=== PATIENT | female | born 1975 | race Caucasian/White ===

== ENCOUNTER 2019-10-02 14:18 | Inpatient (IN) | payer OTHER ==
[~2019-10-02] VITALS: Ht 167.6 cm; Wt 59.9 kg
[2019-10-02 14:20] VITALS: BP 150/88
[2019-10-02 14:45] LABS: URINE BLOOD 2+ (Negative); URINE CLARITY CLEAR; URINE COLOR YELLOW; URINE GLUCOSE-RANDOM* NEGATIVE (Negative); URINE KETONES 3+ (Negative); URINE LEUKOCYTES-REFLEX NEGATIVE (Negative); URINE NITRITE-REFLEX NEGATIVE (Negative); URINE PROTEIN (DIPSTICK) 2+ (Negative); URINE SPECIFIC GRAVITY >= 1.030 (1.005-1.035); URINE UROBILINOGEN 0.2 E.U./dl (0.2-1.0)
[2019-10-02 14:50] LABS: ICTOTEST (BILI CONFIRMATORY) Negative (Negative); URINE BILIRUBIN NEGATIVE (Negative); URINE REDUCING SUBSTANCE NEGATIVE
[2019-10-02 15:22] LABS: CASTS None Seen /LPF (None Seen); CRYSTALS None Seen /LPF (None Seen); SQUAMOUS 4-10 Moderate /LPF (0-3)
[2019-10-02 15:23] LABS: BACTERIA-REFLEX 1-9 Few /HPF (None Seen); URINE RBC 3-10 Few /HPF (0-2); URINE WBC-REFLEX None Seen /HPF (0-5)
[2019-10-02 15:50] LABS: ABSOLUTE NEUTROPHILS 15.4 thou/uL (1.4-8.2); BASOPHILS 0.3 % (0.0-2.0); HEMATOCRIT 47.3 % (37.0-47.0); LYMPHOCYTES 4.3 % (24.0-44.0); MCH 32.2 pg (26.0-34.0); MCHC 33.8 g/dL (28.0-37.0); MCV 95.1 fL (80.0-100.0); MONOCYTES 7.2 % (1.0-8.0); PLATELET COUNT 351 thou/uL (150-400); POLYS 88.2 % (36.0-66.0); RBC 4.97 mil/uL (4.20-5.00); WBC 17.4 thou/uL (4.0-11.0)
[2019-10-02 15:58] LABS: ANION GAP 17 mmol/L (7-16); BUN 12 mg/dL (7-18); CALCIUM 10.4 mg/dL (8.5-10.1); CHLORIDE 99 mmol/L (98-107); CO2 21 mmol/L (21-32); CREATININE 0.8 mg/dL (0.6-1.0); GLUCOSE 118 mg/dL (74-106); POTASSIUM 3.8 mmol/L (3.5-5.1); SODIUM 137 mmol/L (136-145)
[2019-10-02 16:06] LABS: APTT 27.5 Seconds (24.5-32.8); PROTIME 10.9 Seconds (9.3-11.4)
[2019-10-02 16:09] LABS: ALBUMIN 4.8 g/dL (3.4-5.0); LIPASE 40 U/L (73-393); SGOT 10 U/L (15-37); SGPT 12 U/L (30-65); TOTAL BILIRUBIN 1.4 mg/dL (<0.1-1.0); TOTAL PROTEIN 8.6 g/dL (6.4-8.2); TROPONIN-I <0.06 ng/mL (<0.06)
[2019-10-02 17:12] LABS: CHOLESTEROL 210 mg/dL (<200); HDL CHOLESTEROL 89 mg/dL (>40); LDL CHOLESTEROL 106 mg/dL (<100); TC:HDL 2.4 Ratio (Not establshd); TRIGLYCERIDE 75 mg/dL (<150); VLDL 15 mg/dL (<40)
[2019-10-02 17:13] LABS: SERUM ASSESSMENT Clear
[2019-10-02 17:49] LABS: FOLIC ACID 16.5 ng/mL (8.6-58.9); TSH 1.234 uIU/mL (0.358-3.740)
[2019-10-02 17:53] VITALS: BP 131/76
[2019-10-02 18:11] VITALS: BP 131/76
[2019-10-02 18:19] VITALS: BP 144/77
[2019-10-02 18:40] VITALS: BP 109/59
[2019-10-02] MEDS ORDERED: PROAIR HFA8.5 GM INH (19:10)
--- NOTE | 2019-10-02 19:29 | EKG ---
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
[2019-10-02 19:34] VITALS: BP 141/78
--- NOTE | 2019-10-02 22:32 | NUR ---
PATIENT WAS A NEW ADMISSION TO THE UNIT SHORTLY BEFORE SHIFT CHANGE. FULLY ALERT AND ORIENTED, PATIENT IS ABLE TO PARTICIPATE IN ADMISSION AND CALL APPROPRIATELY FOR NEEDS. PATIENT IS ABLE TO FREELY AMBULATE THE ROOM AND APPEARS STRONG AND BALANCED WHEN WALKING. CHIEF COMPLAINT NAUSEA, NURSE HAS TREATED PATIENT EFFECTIVELY USING MEDICATIONS AND NON PHARMACOLOGICAL INTERVENTION. NURSE TO COMPLETE ADMISSION PROCESS AND INITIATE PLAN OF CARE.
[2019-10-02 23:45] LABS: AMP/METHAMP Negative (Negative); BARBITURATES Negative (Negative); BENZODIAZEPINES Negative (Negative); COCAINE Negative (Negative); METHADONE Negative (Negative); OPIATES Negative (Negative); PCP Negative (Negative)
[2019-10-03] VITALS: BP 107/59
[2019-10-03 03:35] VITALS: BP 132/83
[2019-10-03 05:05] LABS: MCH 32.8 pg (26.0-34.0); MCV 96.5 fL (80.0-100.0); RBC 3.73 mil/uL (4.20-5.00); RDW 13.2 % (10.5-14.5); WBC 9.6 thou/uL (4.0-11.0)
[2019-10-03 05:11] LABS: HEMOGLOBIN 12.2 gm/dL (12.0-15.0)
[2019-10-03 07:50] VITALS: BP 138/83
--- NOTE | 2019-10-03 10:44 | NUR ---
INITIAL ASSESSMENT: Received consult. KENNETH reviewed chart and spoke with nursing and attending physician. Pt was admitted from home due to hematemesis. GI consulted. Pt to have an EGD today. KENNETH met with pt at bedside. Introduced role of SW. Pt is alert/orientated x 4. Pt reports she lives at home with her s/o. Prior to admission, pt was independent with ADLs. No use of DME. No hx of services or post-acute placement. Pt does not have a PCP. Pt does not have health insurance. Referral to be sent to [employer] to assist pt with Medicaid application and/or [facility] financial assistance. SW to provide pt with Health Resource Guide and prescription discount card. Pt states she is wanting to find a PCP. Plan is for pt to discharge home when medically stable. KENNETH is following to assist as needed with discharge planning.
[2019-10-03 16:17] VITALS: BP 149/89
--- NOTE | 2019-10-03 16:56 | NUR ---
PT ALERT AND ORIENTED TIMES FOUR. VSS, SR ON TELE, IVF INFUSING PER ORDER. PT DENIES PAIN/SOA/N/V. PT UP AB NICK WITH STEADY GAIT. EGD DONE TODAY. PT TOLERATING SOFT DINNER. PT FAMILY AT BEDSIDE. PT SLOWLY PROGRESSING TOWRADS POC GOALS.
[2019-10-03 19:19] VITALS: BP 124/71
--- NOTE | 2019-10-03 21:26 | P ---
[facility] [place] [address] PROCEDURE REPORT Name: CHRISTINA LAZCANO Room #: 364-P [facility] IN M.R.#: [id number] Admission: 10/02/19 Attend Phys: Marcos Shanks Discharge: Date of : 77 Report #: [id number] THIS REPORT FOR: //name// CC: ES[facility] physician/PCP Marcos Shanks DATE OF SERVICE: 10/03/2019 PROCEDURE: EGD with biopsies. PATIENT OF: Dr. Shanks. INDICATION FOR PROCEDURE: This patient has had nausea and vomiting for the last 4 days of uncertain etiology. Her nausea continues, but she has now stopped vomiting. She also apparently has history of gastroesophageal reflux and some dysphagia and had reported coffee-ground emesis. Informed consent for this procedure was obtained after the risks of the procedure were explained to the patient. The risks include but are not limited to the following: bleeding, perforation, infection, complications of sedation and the possibility I could miss something. The patient is indicated her consent to proceed by signing. Propofol was slowly titrated before and during this procedure for patient comfort by the anesthesia service. Anesthesia kindly provided deep sedation for this procedure. With the patient in the left lateral decubitus position, the Olympus upper videoscope was introduced through the upper esophageal sphincter and advanced under direct visualization to the third portion of the duodenum. Findings are noted on withdrawal of the scope. The duodenal mucosa appears normal throughout its entirety. Pylorus, normal mucosa. Antrum, erythematous mucosa. Biopsies were obtained x 2 from the antrum for Helicobacter pylori evaluation and other entities that might cause a mild gastritis. Body, normal mucosa. Cardia and fundus, normal mucosa. Retroflex view did not reveal any further abnormalities. The scope was withdrawn into the esophagus. The Z-line is appropriately located at the top of the gastric folds. There are esophageal ulcerations extending from the Z-line up into almost the proximal esophagus. There is no bleeding seen in this area, in the very proximal esophagus at 20 cm from the incisors, there is an esophageal stricture. 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 She will need to have this dilated at a later point. [address] [address] PROCEDURE REPORT Name: CHRISTINA LAZCANO Room #: 364-P [facility] IN .R.#: [id number] Admission: 10/02/19 Attend Phys: Marcos Shanks Discharge: Date of : 77 Report #: [id number] The scope was withdrawn. The patient went to the recovery area in stable condition. She tolerated the procedure well. IMPRESSION: 1. Severely ulcerated mid and distal esophagus. 2. Tight esophageal stricture at 20 cm. Mucosa at this level looks intact. 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 3. Mild antral erythema, biopsied. 4. Normal duodenum. RECOMMENDATIONS: My recommendations are to await the biopsy results. We will continue the proton pump inhibitors, but increase up to IV push b.i.d. We will start her on a soft diet. I would like for her to have a gastric emptying study as well as she vomited undigested foods 12 hours after ingesting them on Tuesday and she says she has vomited undigested foods at multiple points in the past. This suggests possible gastroparesis. She will need a followup EGD in approximately 12 weeks for evaluation of ulcerated esophagitis healing and for dilatation of a tight proximal esophageal stricture that I think may be secondary to cricopharyngeal achalasia. Thank you very much once again for allowing me to participate in her care, Dr. Shanks. <ELECTRONICALLY SIGNED> By: Kiarra Wheeler DO 10/03/19 2126 1529 16 Kiarra Wheeler DO /nt
--- NOTE | 2019-10-04 04:01 | NUR ---
Able to tolerate soft foods and liquids without being nauseous though she stated it hurts when she eats. No nausea or vomiting. Denies being in pain at rest. Pt. instructed to keep NPO status since MN for gastric emptying study. Up ad rupali in room with steady gait. Making progress towards care plan goals.
[2019-10-04 04:15] VITALS: BP 122/67
[2019-10-04 07:25] VITALS: BP 109/68
[2019-10-04 10:58] LABS: HEMATOCRIT 38.7 % (37.0-47.0); HEMOGLOBIN 13.1 gm/dL (12.0-15.0); MCH 32.5 pg (26.0-34.0); MCHC 33.9 g/dL (28.0-37.0); MCV 95.7 fL (80.0-100.0); RBC 4.04 mil/uL (4.20-5.00); RDW 12.6 % (10.5-14.5); WBC 9.6 thou/uL (4.0-11.0)
[2019-10-04 11:12] LABS: CALCIUM 8.6 mg/dL (8.5-10.1); CREATININE 0.6 mg/dL (0.6-1.0); MAGNESIUM 1.6 mg/dL (1.8-2.4)
[2019-10-04 11:17] LABS: POTASSIUM 2.8 mmol/L (3.5-5.1)
--- NOTE | 2019-10-04 13:13 | NUR ---
KENNETH reviewed chart and spoke with nursing and attending physciian. Pt is not ready for discharge today. Pt's potassium is low. Pt's diet to be slowly advanced. Discharge anticipated for tomorrow. KENNETH met with pt at bedside. KENNETH provided pt with Health Resource Guide and prescription discount card. [employer] screened pt and pt will not qualify for Medicaid, as she is no 12+ months disabled. Pt will discharge home when medically stable. KENNETH is following to assist as needed with discharge planning.
--- NOTE | 2019-10-04 15:35 | NUR ---
ASSUMED CARE OF PT AT APPROX 0700. PT IS ALERT AND ORIENTED X4, MONITORED ON TELE AND ABLE TO MAINTAIN 02 SAT >90 ON RA. DENIES PAIN AND SOA. EVEN NON LABORED BREATHING. ASSESSMENT CHARTED. REPLACING K+ AND MAG ORDERED. NAD NOTED. PT DENIES FURTHER CONCERNS OR QUESTIONS. WILL CONTINUE TO MONITOR.
[2019-10-04 16:25] VITALS: BP 131/84
[2019-10-04 20:00] VITALS: BP 142/75
--- NOTE | 2019-10-05 02:33 | NUR ---
WATCHING TV WITH SIG OTHER MOST OF SHIFT. UP AD NICK IN ROOM. REMAINS WITH NAUSEA AT TIMES. PROGRESSING SLOWLY TOWARDS DISCHARGE GOALS. MAINTAIN SAFE ENVIRONMENT. CONTINUE TO ASSES.
[2019-10-05 04:10] VITALS: BP 126/79
[2019-10-05 05:35] LABS: HEMATOCRIT 36.8 % (37.0-47.0); HEMOGLOBIN 12.6 gm/dL (12.0-15.0); MCH 32.6 pg (26.0-34.0); MCHC 34.3 g/dL (28.0-37.0); RBC 3.87 mil/uL (4.20-5.00); RDW 12.5 % (10.5-14.5); WBC 6.6 thou/uL (4.0-11.0)
[2019-10-05 05:51] LABS: CALCIUM 8.1 mg/dL (8.5-10.1); CREATININE 0.5 mg/dL (0.6-1.0); MAGNESIUM 1.9 mg/dL (1.8-2.4)
[2019-10-05 06:05] LABS: POTASSIUM 2.7 mmol/L (3.5-5.1)
[2019-10-05 07:38] VITALS: BP 139/87
--- NOTE | 2019-10-05 13:59 | NUR ---
KENNETH reviewed chart and spoke with nursing and attending physician. Pt may discharge home later today. Potassium to be rechecked at 1500. KENNETH met with pt at bedside to discuss discharge plan. Pt states she may be able to afford medications, but unsure until she knows the costs. KENNETH discussed with Director of Case Mgmt, who states that Case Mgmt can vouch for meds. KENNETH faxed face sheet to [facility]. Nursing to take scripts to pharmacy today if pt discharges. Pt will bring scripts back on Tuesday to have filled if she discharges home over the weekend. Pt has [facility] Health Resource Guide and prescripton assistance card. SW is following to assist as needed with discharge planning.
[2019-10-05 15:43] VITALS: BP 150/89
--- NOTE | 2019-10-05 18:23 | NUR ---
ASSUMED CARE OF PT AT 0700. CRITICAL K+ THIS AM - REPLACED X5 BAGS OF K+. LAB RESULTS PENDING. WILL CONT TO MONITOR.
[2019-10-05 18:34] LABS: CREATININE 0.6 mg/dL (0.6-1.0); MAGNESIUM 1.6 mg/dL (1.8-2.4); POTASSIUM 3.4 mmol/L (3.5-5.1)
[2019-10-05 20:15] VITALS: BP 135/72
--- NOTE | 2019-10-05 22:06 | PATH ---
[facility] [address] [place] [address] PATHOLOGY RPT PROCEDURE Name: JEANNE CARLSON Room #: 364-P ADM IN M.R.#: [id number] Admission: 10/02/19 Date of : 77 Discharge: Report #: [id number] Path Case #: [id number] [facility] Accession Number: [id number] . 01 Material submitted: . stomach - GASTRIC BIOPSY R/O H. PYLORI . 01 Clinical history: . Hematemesis, nausea/vomiting, diarrhea, R/O H. pylori . 02 Diagnosis: "Gastric BX R/O H. pylori", biopsy: - Gastric mucosa with mild reactive changes and mild chronic inflammation. - No organisms present on H. pylori immunohistochemical stain (block A1); control reacted appropriately. (RICKY:kanchan; 10/05/2019) MBR 10/05/2019 1403 Local . 02 Electronically signed: . Khadijah Hernadez MD, Pathologist NPI- [id number] . 01 Gross description: . The specimen is received in formalin, labeled "Jeanne Carlson, gastric biopsy, R/O H. pylori". Received are two segments of pale morales soft tissue measuring 0.5 cm each in maximum dimensions. The specimen is submitted entirely in cassette A1. (CAA; 10/04/2019) QA/[facility] 10/04/2019 1051 Local . 02 Pathologist provided ICD-10: K29.50 . 02 CPT . 221703, Q48077 Specimen Comment: A courtesy copy of this report has been sent to [phone], [phone] Specimen Comment: [id number] Specimen Comment: Report sent to / DR SALAS Performed at: [address], [place] [id number] MD Jabier Chopra MD Phone: [phone] Performed at: [address] [id number] MD Lana Burr MD Phone: [phone]
--- NOTE | 2019-10-06 02:39 | NUR ---
Patient has made progress towards her discharge. She is resting comfortably. Nursing will continue to monitor.
[2019-10-06 04:13] LABS: CREATININE 0.5 mg/dL (0.6-1.0); MAGNESIUM 1.9 mg/dL (1.8-2.4)
[2019-10-06 04:23] LABS: POTASSIUM 2.9 mmol/L (3.5-5.1)
[2019-10-06 04:40] VITALS: BP 102/74
--- NOTE | 2019-10-06 06:25 | NUR ---
Iv K+ replacement ordered. Pt refused due to experience yesterday receiving K+ IV- she reported it burned her arm all day. She reported she wanted to eat and that she was hungry- she wanted to replace K+ via diet. Provider notified and full liquid diet ordered plus Gatorade.
[2019-10-06 07:23] VITALS: BP 136/97
[2019-10-06] MEDS ORDERED: CARAFATE 11 GM/10 M1 PO (15:50)
[2019-10-06] MEDS ORDERED: PROTONIX40 M2 PO (15:50)
[2019-10-06 16:00] VITALS: BP 136/97
[2019-10-06 16:05] VITALS: BP 136/97
--- NOTE | 2019-10-06 16:12 | NUR ---
PT DISCHARGE INSTRUCTIONS REVIEWED WITH PT. RXS SENT ELECTRONICALLY. ALL BELONGINGS SENT WITH PT. DISCHARGE INSTRUCTIONS AND EDUCATION MATERIALS SENT WITH PT.
== END 2019-10-06 16:18 | disposition home or self-care (01) | DRG 391 ==
LOC: ER 14:18 → 3W 17:04 → EROBS 17:04 → 3W 18:21
PROVIDERS: Emergency Medicine; Internal Medicine; ADMIT Hospitalist
PROC: 0DB68ZX Excision of Stomach, Via Natural or Artificial Opening Endoscopic, Diagnostic (ICD-10-PCS; principal; 2019-10-03)
DX: K22.2 Esophageal obstruction (principal); K22.11 Ulcer of esophagus with bleeding; K92.0 Hematemesis; J45.909 Unspecified asthma, uncomplicated; E86.0 Dehydration; E80.6 Other disorders of bilirubin metabolism; D72.829 Elevated white blood cell count, unspecified; F17.290 Nicotine dependence, other tobacco product, uncomplicated; K52.9 Noninfective gastroenteritis and colitis, unspecified; K21.9 Gastro-esophageal reflux disease without esophagitis; F19.10 Other psychoactive substance abuse, uncomplicated; E78.5 Hyperlipidemia, unspecified; R13.10 Dysphagia, unspecified; E87.6 Hypokalemia; Z86.73 Personal history of transient ischemic attack (TIA), and cerebral infarction without residual deficits; Z87.11 Personal history of peptic ulcer disease; Z79.899 Other long term (current) drug therapy
CPT/HCPCS: 10879; 62110; 62900; 70005